=== PATIENT | male | born 1955 | race Caucasian/White ===

== ENCOUNTER 2016-07-21 13:53 | Emergency (ER) | payer BC, OTHER ==
[~2016-07-21] VITALS: Ht 180.3 cm; Wt 101.7 kg
[~2016-07-21 13:53] MED LIST: ALBU1AER9 INH; ASPI81TA28 PO; ATOR10TA88 PO; CITA20TA4 PO; FELO10TA2 PO; FLUT0.15 NAE; METO1TAB31 PO; NTRGSL/4 UT; TAMS0.4C38 PO
[2016-07-21 13:58] VITALS: TEMP 36.8; Ht 180.3 cm; Wt 101.7 kg
[2016-07-21] MEDS ORDERED: LORAZEPAM 2 MG/ML 1 ML VIAL IV STA ×2 (14:04→17:16)
--- NOTE | 2016-07-21 14:07 | EMERGENCY ROOM VISIT NOTE ---
History Report prepared by Isidoro: Amanuel Rapp Under the Supervision of: Dr. Yudith Nogueira M.D. First contact with patient: 14:01 Chief Complaint: ILLNESS Stated Complaint: SHORTNES OF BREATH History of Present Illness The patient is a 60 year old male who presents to the Emergency Room with complaints of persistent shortness of breath that started prior to arrival. He says he has some discomfort in his chest as well but he thinks it is because of the position he is in on the bed. The patient notes that he drinks a lot of alcohol. Per the nursing staff, the patient's last drink was this morning, but when EMS got to his house, the patient was drinking mouthwash. Source of History: patient, nursing staff Onset: Prior to arrival Position: other (global - shortness of breath) Symptom Intensity: "cannot catch breath" Timing: other (persistent) Note: Associated symptoms: Drank alcohol prior to arrival. Otherwise, no associated symptoms noted. Review of Systems See HPI for pertinent positives & negatives. A total of 10 systems reviewed and were otherwise negative. Past Medical & Surgical Medical Problems: (1) Unspecified asthma Family History No pertinent family history Social History Smoking Status: Former Smoker Alcohol Use: heavy Marital Status: single Housing Status: lives with family Occupation Status: employed Current/Historical Medications Scheduled Aspirin (Aspirin Ec), 81 MG PO DAILY Atorvastatin (Lipitor), 10 MG PO DAILY Citalopram Hydrobromide (Citalopram Hydrobromide), 20 MG PO DAILY Famotidine (Pepcid), 20 MG PO DAILY Felodipine (Plendil), 10 MG PO DAILY Felodipine (Felodipine ER), 5 MG PO DAILY Metoprolol Succinate (Toprol Xl), 25 MG PO DAILY Nitroglycerin (Nitrostat), 0.4 MG UT PRN Tamsulosin Hcl (Flomax), 0.4 MG PO DAILY Scheduled PRN Albuterol Hfa (Ventolin Hfa), 2-4 PUFFS INH Q6H PRN for SOB/Wheezing Chlordiazepoxide (Librium), 25 MG PO TID PRN for anxiety Fluticasone Propionate (Nasal) (Flonase Allergy Relief), 2 SPRAYS MEAGAN DAILY PRN for ALLERGIC REACTION Allergies Coded Allergies: Oxycodone (Verified Allergy, Unknown, HIVES, 07/21/16) Physical Exam Vital Signs Date Time Temp Pulse Resp B/P Pulse Ox O2 Delivery O2 Flow Rate FiO2 07/21/16 17:34 89 18 172/109 96 Room Air 07/21/16 16:54 100 22 192/105 95 Room Air 07/21/16 15:11 86 20 184/102 98 Room Air 07/21/16 15:11 96 07/21/16 14:05 87 07/21/16 13:58 36.8 85 28 175/97 99 Room Air Physical Exam CONSTITUTIONAL: Moderate anxious distress. HEENT: No icterus, moist mucous membranes NECK: No meningismus, trachea is midline. CARDIOVASCULAR: Regular rate, normal perfusion RESPIRATORY: Unlabored breathing. Clear to auscultation. GASTROINTESTINAL: Non-tender GENITOURINARY: No flank tenderness MUSCULOSKELETAL: Full range of motion NEUROLOGIC: No acute gross focal deficits. PSYCHIATRIC: Normal affect SKIN: Normal for ethnicity. Medical Decision & Procedures ER Provider Diagnostic Interpretation: X-ray results as stated below per my interpretation and radiologist interpretation. Other radiology results as stated below per my review and radiologist interpretation. CHEST ONE VIEW PORTABLE CLINICAL HISTORY: Shortness of breath COMPARISON STUDY: Chest radiograph July 07, 2010. FINDINGS: There is a healed fracture of the mid shaft of the right clavicle. No pneumothorax or pleural effusion is present. Cardiomediastinal silhouette is stable. There is no evidence of pulmonary edema. No consolidation is identified. IMPRESSION: No acute cardiopulmonary findings. Electronically signed by: Kumar Camargo M.D. 07/21/2016 2:24 PM Dictated Date/Time: 07/21/2016 2:[address] ANGIOGRAM OF THE CHEST CLINICAL HISTORY: Dyspnea. COMPARISON STUDY: Chest x-ray dated 07/21/2016. TECHNIQUE: Following the IV administration of 93 cc of Optiray 320, CT angiogram of the chest was performed from the upper abdomen to the thoracic inlet utilizing the pulmonary embolus protocol. Images are reviewed in the axial, sagittal, and coronal planes. 3-D MIPS images are created and assessed. IV contrast was administered without complication. CT DOSE: 422.39 mGy.cm FINDINGS: Thyroid: The thyroid gland is enlarged and heterogeneous attenuation. Numerous coarse calcifications are identified. The thyroid gland extends into the superior mediastinum Thoracic aorta: The thoracic aorta is normal in caliber and demonstrates standard 3-vessel arch anatomy. No dissection is seen. Pulmonary vasculature: The pulmonary trunk is dilated, measuring 4.5 cm in diameter. This suggests pulmonary artery hypertension. There are no filling defects identified in main, lobar, or segmental pulmonary branches to suggest pulmonary embolus. Heart: The heart is enlarged and without pericardial effusion. There are coronary artery calcifications. Lungs and pleural spaces: There is no airspace consolidation or pleural effusion. Mild diffuse peribronchial thickening is identified. Minimal dependent atelectasis is observed. The trachea and central airways our clear. Scattered calcified granulomas are identified. Mediastinum: A high pretracheal node on image #253 measures 1.2 cm in short axis. No additional enlarged mediastinal lymph nodes are identified. Donna: Clear. Axillae: There is no axillary lymphadenopathy. Upper abdomen: There is severe hepatic steatosis. A small hiatal hernia is identified. There is a 12 mm indeterminant lymph node identified just above the gastroesophageal junction on image #39. Skeletal structures: No lytic or blastic bony lesions are seen. IMPRESSION: 1. There is no evidence of pulmonary embolus in the main, lobar, or segmental pulmonary arteries. 2. Cardiomegaly with evidence of pulmonary artery hypertension. 3. There is no airspace consolidation or pleural effusion. Mild peribronchial thickening suggests reactive airway disease. Clinical correlation will be required. 4. Severe hepatic steatosis. 5. There is a single mildly enlarged mediastinal lymph node as well as a mildly enlarged perigastric lymph node. These are of indeterminant etiology and significance. 6. Enlarged thyroid goiter. 7. Additional findings as above. Electronically signed by: Colten Rossi M.D. 07/21/2016 3:57 PM Dictated Date/Time: 07/21/2016 3:50 PM Laboratory Results 07/21/16 13:40 Red Blood Count 4.31, Mean Corpuscular Volume 94.0, Mean Corpuscular Hemoglobin 33.9, Mean Corpuscular Hemoglobin Concent 36.0, Mean Platelet Volume 10.2, Neutrophils (%) (Auto) 59.6, Lymphocytes (%) (Auto) 24.6, Monocytes (%) (Auto) 13.7, Eosinophils (%) (Auto) 1.3, Basophils (%) (Auto) 0.5, Neutrophils # (Auto ) 2.35, Lymphocytes # (Auto) 0.97, Monocytes # (Auto) 0.54, Eosinophils # (Auto ) 0.05, Basophils # (Auto) 0.02 07/21/16 13:40 Test 07/21/16 13:40 07/21/16 14:55 07/21/16 15:10 White Blood Count 3.94 K/uL (4.8-10.8) Red Blood Count 4.31 M/uL (4.7-6.1) Hemoglobin 14.6 g/dL (14.0-18.0) Hematocrit 40.5 % (42-52) Mean Corpuscular Volume 94.0 fL (80-100) Mean Corpuscular Hemoglobin 33.9 pg (25-34) Mean Corpuscular Hemoglobin Concent 36.0 g/dl (32-36) Platelet Count 152 K/uL (130-400) Mean Platelet Volume 10.2 fL (7.4-10.4) Neutrophils (%) (Auto) 59.6 % Lymphocytes (%) (Auto) 24.6 % Monocytes (%) (Auto) 13.7 % Eosinophils (%) (Auto) 1.3 % Basophils (%) (Auto) 0.5 % Neutrophils # (Auto) 2.35 K/uL (1.4-6.5) Lymphocytes # (Auto) 0.97 K/uL (1.2-3.4) Monocytes # (Auto) 0.54 K/uL (0.11-0.59) Eosinophils # (Auto) 0.05 K/uL (0-0.5) Basophils # (Auto) 0.02 K/uL (0-0.2) RDW Standard Deviation 50.9 fL (36.4-46.3) RDW Coefficient of Variation 15.0 % (11.5-14.5) Immature Granulocyte % (Auto) 0.3 % Immature Granulocyte # (Auto) 0.01 K/uL (0.00-0.02) Anion Gap 16.0 mmol/L (3-11) Est Creatinine Clear Calc Drug Dose 112.0 ml/min Estimated GFR () 109.3 Estimated GFR (Non- 94.3 BUN/Creatinine Ratio 15.8 (10-20) Calcium Level 9.4 mg/dl (8.5-10.1) Magnesium Level 1.7 mg/dl (1.8-2.4) Total Bilirubin 1.1 mg/dl (0.2-1) Direct Bilirubin 0.3 mg/dl (0-0.2) Aspartate Amino Transf (AST/SGOT) 169 U/L (15-37) Alanine Aminotransferase (ALT/SGPT) 76 U/L (12-78) Alkaline Phosphatase 72 U/L (45-117) Troponin I < 0.015 ng/ml (0-0.045) Total Protein 7.2 gm/dl (6.4-8.2) Albumin 3.8 gm/dl (3.4-5.0) Lipase 296 U/L (73-393) D-Dimer 960 ug/L FEU (0-500) Ethyl Alcohol mg/dL 69.0 mg/dl (0-3) Urine Color YELLOW Urine Appearance CLOUDY (CLEAR) Urine pH 8.0 (4.5-7.5) Urine Specific [place] 1.013 (1.000-1.030) Urine Protein NEG (NEG) Urine Glucose (UA) NEG (NEG) Urine Ketones TRACE (NEG) Urine Occult Blood NEG (NEG) Urine Nitrite NEG (NEG) Urine Bilirubin NEG (NEG) Urine Urobilinogen POS (NEG) Urine Leukocyte Esterase SMALL (NEG) Urine WBC (Auto) 10-30 /hpf (0-5) Urine RBC (Auto) 0-4 /hpf (0-4) Urine Epithelial Cells (Auto) >30 /lpf (0-5) Urine Bacteria (Auto) 2+ (NEG) Urine Renal Epithelial Cells /lpf (0-5) Urine Mucus PRESENT (NONE PRSENT) Labs reviewed by ED physician. Medications Administered Medications (Trade) Dose Ordered Sig/Cristino Route Start Time Stop Time Status Last Admin Dose Admin Lorazepam (Ativan Inj) 1 mg PRN STAT IV 07/21/16 14:04 07/21/16 14:06 DC 07/21/16 14:26 1 MG Al Hydrox/Mg Hydrox/Simethicone (Maalox Max Susp) 30 ml NOW STAT PO 07/21/16 15:49 07/21/16 15:51 DC 07/21/16 15:58 30 ML Lidocaine HCl 20 ml 20 ml NOW ONCE MT 07/21/16 16:00 07/21/16 16:01 DC 07/21/16 15:58 20 ML Famotidine/ Dextrose (Pepcid IV Inj/ D5 100ml) 102 ml @ 200 mls/hr NOW IV 07/21/16 16:00 08/20/16 15:59 07/21/16 16:53 200 MLS/HR Lorazepam (Ativan Inj) 1 mg NOW STAT IV 07/21/16 17:16 07/21/16 17:17 DC 07/21/16 17:31 1 MG Chlordiazepoxide (Librium Cap) 25 mg NOW ONCE PO 07/21/16 17:30 07/21/16 17:31 DC 07/21/16 17:32 25 MG ECG Indication: SOB/dyspnea Rate (beats per minute): 81 Rhythm: normal sinus Findings: no ectopy, other (normal axis, nonspecific-ST findings) ED Course 1402: Past medical records reviewed. The patient was evaluated in room B12B. A complete history and physical examination was performed. 1404: Ordered Ativan Inj 1 mg IV PRN. 1549: Ordered Maalox Max Susp 30 ml PO. 1600: Ordered Famotidine 20 mg/Dextrose 102 ml @ 200 mls/hr IV, Viscous Lidocaine 2% Soln 20 ml MT. 1710: I reevaluated the patient and he is resting comfortably. The patient verbally expressed understanding and agreement of the treatment plan. The patient will be discharged. 1730: Ordered Librium Cap 25 mg PO. Medical Decision Differential diagnoses include: alcohol abuse, pancreatitis. 60-year-old presented to the emergency department for evaluation of epigastric discomfort and anxiety. He notes these alcohol regularly last drink being earlier this morning. Epigastrium tender on exam and review of systems negative for melena. Screening d-dimer was noted to be positive and subsequent CT of the chest was negative. EKG and troponin also within normal limits. Patient given Ativan total 2 mg IV and GI cocktail during emergency Department course with subjective improvement. Prescriptions written for Pepcid as well as Librium. There are sisters the bedside will help facilitate outpatient rehabilitation and declined case management intervention today. Patient clearly understands to contact his doctor tomorrow morning for follow-up. He notes he has not been compliant with his felodipine therefore prescription is written in the context of his hypertension today. Impression Primary Impression: GERD (gastroesophageal reflux disease) Additional Impressions: Alcohol abuse Hypertension Scribe Attestation The scribe's documentation has been prepared under my direction and personally reviewed by me in its entirety. I confirm that the note above accurately reflects all work, treatment, procedures, and medical decision making performed by me. Departure Information Dispostion Home / Self-Care Prescriptions Felodipine (Felodipine ER) 5 Mg Tabcr 5 MG PO DAILY, #30 TABS Prov: Yudith Nogueira MD 07/21/16 Chlordiazepoxide (Librium) 25 Mg Cap 25 MG PO TID Y for anxiety, #20 CAP Prov: Yudith Nogueira MD 07/21/16 Famotidine (PEPCID) 20 Mg Tab 20 MG PO DAILY, #20 TAB Prov: Yudith Nogueira MD 07/21/16 Referrals Farzaneh Mathew M.D. (PCP) Forms HOME CARE DOCUMENTATION FORM, IMPORTANT VISIT INFORMATION, WORK / SCHOOL INSTRUCTIONS Patient Instructions Addiction Alcohol Signs, ED GERD, My [facility] Health Problem Qualifiers
[2016-07-21 14:17] LABS: BASO % 0.5 %; BASO ABS # 0.02 K/uL (0-0.2); COMPLETE YES; EOS % 1.3 %; HEMATOCRIT 40.5 % (42-52); IG% 0.3 %; LYMPH % 24.6 %; LYMPH ABS # 0.97 K/uL (1.2-3.4); MEAN CORPUSCULAR HEMOGLOBIN 33.9 pg (25-34); MEAN PLATELET VOLUME 10.2 fL (7.4-10.4); MONO % 13.7 %; NEUT % 59.6 %; PLATELET COUNT 152 K/uL (130-400); RED BLOOD COUNT 4.31 M/uL (4.7-6.1); WHITE BLOOD COUNT 3.94 K/uL (4.8-10.8)
[2016-07-21] MEDS ORDERED: VNTHFA/IN INH (14:18)
[2016-07-21 14:24] LABS: BLOOD UREA NITROGEN 13 mg/dl (7-18); BUN/CREATININE RATIO 15.8 (10-20); CALCIUM 9.4 mg/dl (8.5-10.1); CARBON DIOXIDE 22 mmol/L (21-32); CHLORIDE 103 mmol/L (98-107); CREATININE 0.83 mg/dl (0.60-1.40); GLUCOSE 101 mg/dl (70-99); MAGNESIUM 1.7 mg/dl (1.8-2.4); POTASSIUM 3.2 mmol/L (3.5-5.1); SODIUM 141 mmol/L (136-145)
--- NOTE | 2016-07-21 14:25 | DIAGNOSTIC IMAGING REPORT ---
CHEST ONE VIEW PORTABLE CLINICAL HISTORY: Shortness of breath COMPARISON STUDY: Chest radiograph July 07, 2010. FINDINGS: There is a healed fracture of the mid shaft of the right clavicle. No pneumothorax or pleural effusion is present. Cardiomediastinal silhouette is stable. There is no evidence of pulmonary edema. No consolidation is identified. IMPRESSION: No acute cardiopulmonary findings. Electronically signed by: Kumar Camargo M.D. 07/21/2016 2:24 PM Dictated Date/Time: 07/21/2016 2:23 PM
[2016-07-21 15:25] LABS: URINE APPEARANCE CLOUDY (CLEAR); URINE BILIRUBIN NEG (NEG); URINE COLOR YELLOW; URINE NITRITE NEG (NEG); URINE SPECIFIC GRAVITY 1.013 (1.000-1.030); UROBILINOGEN POS (NEG)
[2016-07-21] MEDS ORDERED: OPTIRAY 320 IV PRN (15:30)
[2016-07-21 15:44] LABS: MANUAL MICROSCOPIC REQUIRED? NO; REVIEW REQ? YES
[2016-07-21] MEDS ORDERED: ALUMINUM/MAGNESIUM/SIMETH (MAALOX MAX) 30 ML UDC PO STA (15:49)
[2016-07-21 15:53] LABS: URINE MUCUS PRESENT (NONE PRSENT)
[2016-07-21 15:54] LABS: URINE EPITHELIAL CELL AUTO >30 /lpf (0-5)
--- NOTE | 2016-07-21 15:58 | DIAGNOSTIC IMAGING REPORT ---
CT ANGIOGRAM OF THE CHEST CLINICAL HISTORY: Dyspnea. COMPARISON STUDY: Chest x-ray dated 07/21/2016. TECHNIQUE: Following the IV administration of 93 cc of Optiray 320, CT angiogram of the chest was performed from the upper abdomen to the thoracic inlet utilizing the pulmonary embolus protocol. Images are reviewed in the axial, sagittal, and coronal planes. 3-D MIPS images are created and assessed. IV contrast was administered without complication. CT DOSE: 422.39 mGy.cm FINDINGS: Thyroid: The thyroid gland is enlarged and heterogeneous attenuation. Numerous coarse calcifications are identified. The thyroid gland extends into the superior mediastinum Thoracic aorta: The thoracic aorta is normal in caliber and demonstrates standard 3-vessel arch anatomy. No dissection is seen. Pulmonary vasculature: The pulmonary trunk is dilated, measuring 4.5 cm in diameter. This suggests pulmonary artery hypertension. There are no filling defects identified in main, lobar, or segmental pulmonary branches to suggest pulmonary embolus. Heart: The heart is enlarged and without pericardial effusion. There are coronary artery calcifications. Lungs and pleural spaces: There is no airspace consolidation or pleural effusion. Mild diffuse peribronchial thickening is identified. Minimal dependent atelectasis is observed. The trachea and central airways our clear. Scattered calcified granulomas are identified. Mediastinum: A high pretracheal node on image #253 measures 1.2 cm in short axis. No additional enlarged mediastinal lymph nodes are identified. Donna: Clear. Axillae: There is no axillary lymphadenopathy. Upper abdomen: There is severe hepatic steatosis. A small hiatal hernia is identified. There is a 12 mm indeterminant lymph node identified just above the gastroesophageal junction on image #39. Skeletal structures: No lytic or blastic bony lesions are seen. IMPRESSION: 1. There is no evidence of pulmonary embolus in the main, lobar, or segmental pulmonary arteries. 2. Cardiomegaly with evidence of pulmonary artery hypertension. 3. There is no airspace consolidation or pleural effusion. Mild peribronchial thickening suggests reactive airway disease. Clinical correlation will be required. 4. Severe hepatic steatosis. 5. There is a single mildly enlarged mediastinal lymph node as well as a mildly enlarged perigastric lymph node. These are of indeterminant etiology and significance. 6. Enlarged thyroid goiter. 7. Additional findings as above. Electronically signed by: Colten Rossi M.D. 07/21/2016 3:57 PM Dictated Date/Time: 07/21/2016 3:50 PM
[2016-07-21] MEDS ORDERED: FAMOTIDINE IV INJ 20 MG in DEXTROSE 5% 100ML 100 ML IV SCH (16:00)
[2016-07-21] MEDS ORDERED: LIDOCAINE HCL 2% VISC SOLN 20 ML UDC MT ONE (16:00)
[2016-07-21] MEDS ORDERED: FAMO20TA9 PO (17:08)
[2016-07-21] MEDS ORDERED: CHLO25CA10 PO (17:10)
[2016-07-21] MEDS ORDERED: [UNRECOGNIZED DRUG - CODE] PO (17:18)
[2016-07-21] MEDS ORDERED: CHLORDIAZEPOXIDE 25 MG CAP PO ONE (17:30)
[2016-07-21 17:34] VITALS: BP 172/109; PULSE 89; O2SAT 96
== END 2016-07-21 18:12 | disposition home or self-care (01) ==
LOC: EDBD 13:53 → C.EDB 13:54
DX: K21.9 Gastro-esophageal reflux disease without esophagitis (principal); F10.10 Alcohol abuse, uncomplicated; I10 Essential (primary) hypertension; J45.909 Unspecified asthma, uncomplicated; Z87.891 Personal history of nicotine dependence; Z79.82 Long term (current) use of aspirin; Z88.5 Allergy status to narcotic agent